=== PATIENT | female | born 1960 ===

== ENCOUNTER 2016-12-25 09:10 | Emergency (ER) | payer OTHER ==
[2016-12-25] MEDS ORDERED: Lidocaine 2% PF * 5 ML VIAL INJ ONE (09:38)
--- NOTE | 2016-12-25 10:24 | UC ---
Laceration HPI - HPI Summary HPI Summary: 6cm LACERATION TO RIGHT (ANTERIOR) LEG AFTER LEG HIT EXERCISE BOX THIS MORNING DURING CROSSFIT ROUTINE. - History Of Current Complaint Chief Complaint: UCLaceration Stated Complaint: LEG LAC Time Seen by Provider: 12/25/16 09:24 Hx Obtained From: Patient Laceration Location: Generalized - RIGHT ANTERIOR LEG Mechanism Of Injury: Blunt Trauma Onset/Duration: Sudden Onset, Lasting Minutes - Allergies/Home Medications Allergies/Adverse Reactions: Allergies Allergy/AdvReac Type Severity Reaction Status Date / Time sugar Allergy Itching Uncoded 12/25/16 09:44 Home Medications: Home Medications NK [No Home Medications Reported] 12/25/16 [History Confirmed 12/25/16] PMH/Surg Hx/FS Hx/Imm Hx Endocrine History: Diabetes - Surgical History Surgical History: None - Family History Known Family History: Negative: Blood Disorder - Social History Occupation: Employed Full-time Lives: With Family Alcohol Use: None Substance Use Type: None Smoking Status (MU): Never Smoked Tobacco - Immunization History Most Recent Tetanus Shot: 1 year ago Review of Systems Constitutional: Negative Skin: Other - LACERATION RIGHT LEG Eyes: Negative ENT: Negative Respiratory: Negative Cardiovascular: Negative Gastrointestinal: Negative Genitourinary: Negative Motor: Negative Neurovascular: Negative Musculoskeletal: Negative Neurological: Negative Psychological: Negative All Other Systems Reviewed And Are Negative: Yes Physical Exam Triage Information Reviewed: Yes Appearance: Well-Appearing, No Pain Distress, Well-Nourished Vital Signs: Initial Vital Signs Temp 98 F 12/25/16 09:16 Pulse 74 12/25/16 09:16 Resp 16 12/25/16 09:16 BP 123/76 12/25/16 09:16 Pulse Ox 100 12/25/16 09:16 Vital Signs Reviewed: Yes Eye Exam: Normal ENT Exam: Normal Dental Exam: Normal Neck exam: Normal Neck: Positive: Supple, Nontender, No Lymphadenopathy Respiratory Exam: Normal Respiratory: Positive: Chest non-tender, Lungs clear, Normal breath sounds, No respiratory distress, No accessory muscle use Cardiovascular Exam: Normal Cardiovascular: Positive: RRR, No Murmur Abdominal Exam: Normal Musculoskeletal Exam: Normal Musculoskeletal: Positive: Strength Intact, ROM Intact, No Edema Neurological Exam: Normal Psychological Exam: Normal Skin: Positive: Other - LACERATION RIGHT LEG 6CM Laceration Repair - Laceration Repair 1 Description: Linear Laceration Size After Repair: Length (cm) - 6, Width (mm) - 10, Depth (mm) - 10 Type Injection: Local Anesthesia Used: 2.0% Lido Cleansing Completed Via Routine Prep: Yes Irrigation With Pressure Irrigation Device: Yes Closure Material: Sutures - 5 X 4-0 PROLENE Suture Of: Skin Suture Type: Prolene Laceration Course/Dx - Differential Dx - Laceration/Wound Differental Diagnoses: Cellulitis, Laceration Provider Diagnoses: RIGHT LEG LACERATION WITH REPAIR Discharge - Discharge Plan Condition: Stable Disposition: HOME Patient Education Materials: Care For Your Stitches (ED), Laceration (ED) Referrals: [facility] [facility] [Outside]
== END 2016-12-25 10:20 | disposition home or self-care (01) ==
LOC: UCEAST 09:10
DX: S81.811A Laceration without foreign body, right lower leg, initial encounter (principal); W21.89XA Striking against or struck by other sports equipment, initial encounter; Y93.B1 Activity, exercise machines primarily for muscle strengthening; E11.9 Type 2 diabetes mellitus without complications
CPT/HCPCS: 99201; G0463